=== PATIENT | male | born 1955 | race Caucasian/White ===

== ENCOUNTER 2017-04-05 15:37 | Emergency (ER) | payer MEDICAID ==
[~2017-04-05] VITALS: Ht 170.2 cm; Wt 72.0 kg
[~2017-04-05 15:37] MED LIST: ASPI-664 PO; IND50 PO
[2017-04-05 15:41] VITALS: Ht 170.2 cm; Wt 72.0 kg
[2017-04-05] MEDS ORDERED: KETOROLAC 30 MG INJ IV STA (16:32)
[2017-04-05 16:49] LABS: BASOPHILS % 0.2 % (0.0-2.0); EOSINOPHILS # 0.2 10^3/ul (0.0-0.5); EOSINOPHILS % 3.7 % (0.0-7.0); HEMATOCRIT 47.4 % (42.0-52.0); HEMOGLOBIN 15.2 g/dl (14.0-18.0); LYMPHOCYTES # 2.4 10^3/ul (0.8-2.9); MEAN CORPUSCULAR HEMOGLOBIN 28.9 pg (29.0-33.0); MEAN CORPUSCULAR HGB CONC 32.1 g/dl (32.0-37.0); MEAN CORPUSCULAR VOLUME 90.1 fl (82.0-101.0); MEAN PLATELET VOLUME 10.3 fl (7.4-10.4); MONOCYTE # 0.5 10^3/ul (0.3-0.9); NEUTROPHIL # 2.7 10^3/ul (1.6-7.5); NEUTROPHILS % 46.9 % (39.0-77.0); PLATELET COUNT 247 10^3/UL (140-415); RED BLOOD COUNT 5.26 10^6/ul (4.70-6.10); RED CELL DISTRIBUTION WIDTH 13.2 % (11.5-14.5); WHITE BLOOD COUNT 5.7 10^3/ul (4.8-10.8)
[2017-04-05 17:10] LABS: ADD UMIC NO; UR ASCORBIC ACID 40 mg/dL (NEGATIVE); UR BILIRUBIN (Dip) NEGATIVE (NEGATIVE); UR BLOOD (Dip) NEGATIVE (NEGATIVE); UR CLARITY CLEAR (CLEAR); UR COLOR YELLOW (YELLOW); UR GLUCOSE (Dip) NEGATIVE (NEGATIVE); UR KETONES (Dip) NEGATIVE (NEGATIVE); UR LEUKOCYTE ESTERASE (Dip) NEGATIVE Leu/ul (NEGATIVE); UR NITRITE (Dip) NEGATIVE (NEGATIVE); UR SPECIFIC GRAVITY (Dip) 1.025 (1.003-1.030); UR TOTAL PROTEIN (Dip) NEGATIVE (NEGATIVE); UR UROBILINOGEN (Dip) NEGATIVE (NEGATIVE)
[2017-04-05 17:16] LABS: ALBUMIN 4.4 g/dl (3.3-4.9); ALBUMIN/GLOBULIN RATIO 1.51; BILIRUBIN,INDIRECT 0.3 mg/dl (0-1.1); BILIRUBIN,TOTAL 0.3 mg/dl (0.2-1.3); CALCIUM 9.5 mg/dl (8.4-10.2); CREATININE 0.81 mg/dl (0.61-1.24); POTASSIUM 5.1 mmol/L (3.5-5.1); TOTAL PROTEIN 7.3 g/dl (6.1-8.1)
--- NOTE | 2017-04-05 18:12 | RADRPT ---
PROCEDURE: US Abdomen. CLINICAL INDICATION: Right upper quadrant Abdominal pain. TECHNIQUE: Multiple real-time images were acquired of the patient's abdomen and retroperitoneum ut ilizing a high resolution transducer. COMPARISON: None FINDINGS: The liver demonstrates normal echogenicity and size and no focal lesions are seen. The liver measure s 12.5 cm. No gallstones are identified within the gallbladder. There is no pericholecystic fluid or gallbladd er wall thickening. No intra or extrahepatic biliary dilatation is seen. The common bile duct measu res 3 mm in maximal dimension. The visualized portions of the pancreas are unremarkable. The right kidney is unremarkable measuring 11.3 cm. No collecting system dilatation, stone or solid mass. IMPRESSION: Unremarkable examination. RPTAT: PP .Jennifer Jansen MD, Date Time Electronically viewed and signed by .Jennifer Jansen MD, on 04/05/2017 18:12 .F/
--- NOTE | 2017-04-05 18:52 | RADRPT ---
PROCEDURE: XR Chest. CLINICAL INDICATION: Right flank and right upper quadrant pain. TECHNIQUE: Single frontal view of the chest was obtained COMPARISON: 05/06/2015. FINDINGS: The heart and mediastinum are within normal limits. The lungs are clear. There is no pleural effusion or pneumothorax. IMPRESSION: No acute disease. RPTAT: [facility] Physician Jayjay Date Time Electronically viewed and signed by Amanda Tarn Physician on 04/05/2017 18:52 RS/
[2017-04-05] MEDS ORDERED: IBUP-1542 PO (19:06)
--- NOTE | 2017-04-05 19:48 | ERD ---
ER Documentation Chief Complaint Date/Time DATE: 04/05/17 TIME: 19:44 Chief Complaint right upper/lower quadrant x3days, denies n/v/d HPI 61-year-old male patient with a past medical history of 3 hernia surgeries 10 years ago presents to the ED with intermittent right flank pain and slight dysuria that started 4 days ago. Denies any chest pain, shortness of breath, cough, fever, vomiting, diarrhea, constipation. Reports he had a normal bowel movement last night. Denies any hematuria, urgency, frequency, polydipsia, polyuria. Denies any saddle anesthesia, urine or bowel incontinence, urinary retention. Denies any scrotal pain, penile discharge. ROS All systems reviewed and are negative except as per history of present illness. Medications Home Meds Active Scripts Ibuprofen* (Motrin*) 600 Mg Tab, 600 MG PO Q6, #30 TAB take with food Prov:WILL RENTERIA PA-C 04/05/17 Aspirin* (Aspirin* EC) 81 Mg Tablet.dr, 81 MG PO DAILY, #30 TAB Prov:CAREN VILLARREAL 05/08/15 Indomethacin* (Indocin*) 50 Mg Cap, 50 MG PO TID, #30 CAP Prov:BRENDEN WHITLEY NP 02/05/15 Allergies Allergies: Coded Allergies: acetaminophen (Verified Allergy, Unknown, BODY RASH, 04/05/17) hydrocodone (Verified Allergy, Unknown, BODY RASH, 04/05/17) PMhx/Soc History of Surgery: Yes (hernia repair) Anesthesia Reaction: No Hx Neurological Disorder: No Hx Respiratory Disorders: No Hx Cardiac Disorders: No Hx Psychiatric Problems: No Hx Miscellaneous Medical Probl: Yes (gout) Hx Alcohol Use: No Hx Substance Use: No Hx Tobacco Use: No Smoking Status: Never smoker Physical Exam Vitals Vital Signs Date Time Temp Pulse Resp B/P Pulse Ox O2 Delivery O2 Flow Rate FiO2 04/05/17 15:41 97.7 69 18 122/99 99 Physical Exam Const: Swx-xyx-[id number], well-nourished. In no acute distress. Head: Atraumatic, normocephalic Eyes: Normal Conjunctiva without injection. No purulent discharge. ENT: Normal external ear, nose. Moist oropharynx without tonsillar exudates. Non -erythematous pharynx. Uvula midline. No drooling. No trismus. Neck: No cervical midline tenderness. Full range of motion. No meningismus. No cervical lymphadenopathy. No JVD. Resp: Clear to auscultation bilaterally. No wheezing, rhonchi, rales, or crackles. No accessory muscle use. No retractions. Cardio: Regular rate and rhythm. No murmurs, rubs or gallops. Abd: Soft, nontender, non distended. Normal bowel sounds. No palpable masses. No rebound tenderness. No guarding. Negative McBurney's point. Negative psoas sign. Negative obturator sign. Skin: No petechiae or rashes Back: No midline tenderness. Right CVA tenderness. Ext: No cyanosis, or edema. Neur: Awake and alert. Normal gait. Normal coordination. Psych: Normal Mood and Affect Results 24 hrs Laboratory Tests Test 04/05/17 16:35 White Blood Count 5.710^3/ul Red Blood Count 5.2610^6/ul Hemoglobin 15.2g/dl Hematocrit 47.4% Mean Corpuscular Volume 90.1fl Mean Corpuscular Hemoglobin 28.9pg Mean Corpuscular Hemoglobin Concent 32.1g/dl Red Cell Distribution Width 13.2% Platelet Count 75383^3/UL Mean Platelet Volume 10.3fl Neutrophils % 46.9% Lymphocytes % 41.0% Monocytes % 8.0% Eosinophils % 3.7% Basophils % 0.2% Nucleated Red Blood Cells % 0.0/100WBC Neutrophils # 2.710^3/ul Lymphocytes # 2.410^3/ul Monocytes # 0.510^3/ul Eosinophils # 0.210^3/ul Basophils # 0.010^3/ul Nucleated Red Blood Cells # 0.010^3/ul Urine Color YELLOW Urine Clarity CLEAR Urine pH 5.0 Urine Specific [place] 1.025 Urine Ketones NEGATIVEmg/dL Urine Nitrite NEGATIVEmg/dL Urine Bilirubin NEGATIVEmg/dL Urine Urobilinogen NEGATIVEmg/dL Urine Leukocyte Esterase NEGATIVELeu/ul Urine Hemoglobin NEGATIVEmg/dL Urine Glucose NEGATIVEmg/dL Urine Total Protein NEGATIVEmg/dl Sodium Level 141mmol/L Potassium Level 5.1mmol/L Chloride Level 102mmol/L Carbon Dioxide Level 31mmol/L Anion Gap 13 Blood Urea Nitrogen 21mg/dl Creatinine 0.81mg/dl Glucose Level 82mg/dl Calcium Level 9.5mg/dl Total Bilirubin 0.3mg/dl Direct Bilirubin 0.00mg/dl Indirect Bilirubin 0.3mg/dl Aspartate Amino Transf (AST/SGOT) 22IU/L Alanine Aminotransferase (ALT/SGPT) 36IU/L Alkaline Phosphatase 68IU/L Total Protein 7.3g/dl Albumin 4.4g/dl Globulin 2.90g/dl Albumin/Globulin Ratio 1.51 Lipase 110U/L Current Medications Medications (Trade) Dose Ordered Sig/[place] Route PRN Reason Start Time Stop Time Status Last Admin Dose Admin Ketorolac Tromethamine (Toradol) 30 mg ONCE STAT IV 04/05/17 16:32 04/05/17 16:35 DC 04/05/17 16:38 Procedures/MDM This is a 61-year-old male patient with no significant past medical history presents to the ED complaining of right flank pain that radiates to her right upper quadrant. Patient is afebrile and nontoxic-appearing. Patient has normal vital signs. Patient was further worked up with CBC, CMP, lipase, UA, gallbladder ultrasound. Patient's pain and symptoms have improved after treatment with 30 mg IV Toradol. CBC: No leukocytosis. No e/o of systemic infection. No e/o anemia. CMP: No e/o severe acidosis, alkalosis, renal failure, diabetic ketoacidosis, liver disease Lipase within normal limits. Urine: No leukocyte esterase, no nitrites, no hematuria. PROCEDURE: XR Chest. CLINICAL INDICATION: Right flank and right upper quadrant pain. TECHNIQUE: Single frontal view of the chest was obtained COMPARISON: 05/06/2015. FINDINGS: The heart and mediastinum are within normal limits. The lungs are clear. There is no pleural effusion or pneumothorax. IMPRESSION: No acute disease. PROCEDURE: US Abdomen. CLINICAL INDICATION: Right upper quadrant Abdominal pain. TECHNIQUE: Multiple real-time images were acquired of the patient's abdomen and retroperitoneum utilizing a high resolution transducer. COMPARISON: None FINDINGS: The liver demonstrates normal echogenicity and size and no focal lesions are seen. The liver measures 12.5 cm. No gallstones are identified within the gallbladder. There is no pericholecystic fluid or gallbladder wall thickening. No intra or extrahepatic biliary dilatation is seen. The common bile duct measures 3 mm in maximal dimension. The visualized portions of the pancreas are unremarkable. The right kidney is unremarkable measuring 11.3 cm. No collecting system dilatation, stone or solid mass. IMPRESSION: Unremarkable examination. Flank pain of uncertain etiology at this time. Low suspicion for gastritis, septic renal stone, GERD, peptic ulcer disease, cholecystitis, choledocholithiasis, cholangitis, pancreatitis, appendicitis, bowel obstruction , ileus, volvulus, nephrolithiasis, pyelonephritis, hepatitis, perforated viscus , diverticulitis, abdominal hernia, acute abdomen, mesenteric ischemia or other emergent conditions. This was discussed with my supervising physician Dr. Atwood who agreed with the management and discharge plan. Discharge medications: Ibuprofen Follow up with primary care physician in 1-2 days. Instructed patient to return to the ED sooner for any worsening symptoms. Patient's questions were answered. Patient understood and agreed with discharge plan. Patient discharged stable. Departure Diagnosis: Primary Impression: Right flank pain Condition: Stable Patient Instructions: Flank Pain, Uncertain Cause Referrals: [facility] YOU HAVE RECEIVED A MEDICAL SCREENING EXAM AND THE RESULTS INDICATE THAT YOU DO NOT HAVE A CONDITION THAT REQUIRES URGENT TREATMENT IN THE EMERGENCY DEPARTMENT. FURTHER EVALUATION AND TREATMENT OF YOUR CONDITION CAN WAIT UNTIL YOU ARE SEEN IN YOUR DOCTORS OFFICE WITHIN THE NEXT 1-2 DAYS. IT IS YOUR RESPONSIBILITY TO MAKE AN APPOINTMENT FOR FOLOW-UP CARE. IF YOU HAVE A PRIMARY DOCTOR --you should call your primary doctor and schedule an appointment IF YOU DO NOT HAVE A PRIMARY DOCTOR YOU CAN CALL OUR PHYSICIAN REFERRAL HOTLINE AT IF YOU CAN NOT AFFORD TO SEE A PHYSICIAN YOU CAN CHOSE FROM THE FOLLOWING [facility] [address] [facility]. [facility] [address] [facility]. [facility] [address] [facility]. [facility] [address] [facility]. [facility] [address] [facility]. [facility]. [address] [facility] YOU HAVE RECEIVED A MEDICAL SCREENING EXAM AND THE RESULTS INDICATE THAT YOU DO NOT HAVE A CONDITION THAT REQUIRES URGENT TREATMENT IN THE EMERGENCY DEPARTMENT. FURTHER EVALUATION AND TREATMENT OF YOUR CONDITION CAN WAIT UNTIL YOU ARE SEEN IN YOUR DOCTORS OFFICE WITHIN THE NEXT 1-2 DAYS. IT IS YOUR RESPONSIBILITY TO MAKE AN APPOINTMENT FOR FOLOW-UP CARE. IF YOU HAVE A PRIMARY DOCTOR --you should call your primary doctor and schedule and appointment IF YOU DO NOT HAVE A PRIMARY DOCTOR YOU CAN CALL OUR PHYSICIAN REFERRAL HOTLINE AT . IF YOU CAN NOT AFFORD TO SEE A PHYSICIAN YOU CAN CHOSE FROM THE FOLLOWING [facility] INSTITUTIONS[facility] [address] [place] [address] [facility] [address] [place] [address] [facility] [address] [place] [address] [facility] URGENT CARE/SPECIALTIES Additional Instructions: Llame al doctor MAANA y whit peg DAVID PARA DENTRO DE 1-2 YOUNG.Dgale a la secretaria que nosotros le instruimos hacer esta david.Avise o llame si murdock condicin se empeora antes de la david. Regresa aqui si peor o no mejor. WILL RENTERIA PA-C Apr 05, 2017 19:48 secretaria que nosotros le instruimos hacer esta david.Avise o llame si murdock condicin se empeora antes de la david. Regresa aqui si peor o no mejor. WILL RENTERIA PA-C Apr 05, 2017 19:48
[2017-04-05 19:51] VITALS: BP 113/74; PULSE 89; RESP 16
== END 2017-04-05 19:53 | disposition home or self-care (01) ==
LOC: FTE 15:37
DX: R10.11 Right upper quadrant pain (principal); Z79.82 Long term (current) use of aspirin
CPT/HCPCS: 36415; 71010; 76705; 80053; 81003; 83690; 85025; 96374; J1885; Z7502